=== PATIENT | female | born 1950 | race Two or more races ===

== ENCOUNTER 2017-03-04 06:31 | Inpatient (IN) | payer MEDICARE, OTHER ==
[~2017-03-04] VITALS: Ht 162.6 cm; Wt 40.8 kg
--- NOTE | 2017-03-04 06:35 | NUR ---
66 YO FEMALE BB AMBULANCE FOR J TUBE INSERTION. PT IS A MARIANO PATIENT, AND WANT PATIENT ADMITTED FOR RE INSERTION OF TUBE. PT DS TO ER BED, SKIN WARM AND DRY, RR EVEN AN DUNLABORED. AWAITING ORDERS FROM PROVIDER, WILL CONTINUE TO MONITOR
--- NOTE | 2017-03-04 06:47 | NUR ---
BLOOD SAMPLE OBTAINED AND SENT TO LAB
--- NOTE | 2017-03-04 06:53 | NUR ---
CALLED [facility] FOR AN H&P NO H&P WAS SENT WITH THE PT
[2017-03-04 07:03] LABS: EOSINOPHILS % (AUTO) 0.1 % (0.0-6.0); HEMATOCRIT 30 % (33-45); HEMOGLOBIN 10.2 g/dL (11.5-14.8); LYMPHOCYTES # (AUTO) 1.1 /CMM (0.8-4.8); LYMPHOCYTES % (AUTO) 5.8 % (20.0-44.0); MEAN CORPUSCULAR HEMOGLOBIN 34 PG (26.0-33.0); MEAN CORPUSCULAR HGB CONC 34 g/dl (31.0-36.0); MEAN CORPUSCULAR VOLUME 99 fL (82-100); MONOCYTES # (AUTO) 0.7 /CMM (0.1-1.30); MONOCYTES % (AUTO) 3.8 % (2.0-12.0); NEUTROPHILS # (AUTO) 17.6 /CMM (1.8-8.9); NEUTROPHILS % (AUTO) 90.3 % (43.0-81.0); PLATELET COUNT (AUTO) 104 /CMM (150-450); RDW COEFFICIENT OF VARIATION 18.6 (11.5-15.0); RED BLOOD CELL COUNT(AUTO) 3.05 MIL/uL (4.0-5.2); WHITE BLOOD COUNT (AUTO) 19.4 K/uL (4.3-11.0)
--- NOTE | 2017-03-04 07:14 | NUR ---
RECEIVED REPORT FROM PAT FOR ENRIQUE
[2017-03-04 07:21] LABS: CALCIUM, SERUM 7.9 mg/dL (8.5-10.1); CREATININE 1.4 mg/dL (0.6-1.3); POTASSIUM 5.2 mmol/L (3.5-5.1)
[2017-03-04 07:23] LABS: PROTHROMBIN TIME 10.7 SECS (9.5-12.7)
--- NOTE | 2017-03-04 07:42 | NUR ---
PAGED DR SANCHEZ, WAITING FOR RETURN CALL.
--- NOTE | 2017-03-04 08:05 | NUR ---
GAVE REPORT TO DIPTI CHOI MEDSURG DR QUINTANA ADMITTING DX J TUBE REPLACEMENT
[2017-03-04] MEDS ORDERED: LACT10SO JT (08:07)
[2017-03-04] MEDS ORDERED: DOCU-170 JT (08:07)
[2017-03-04] MEDS ORDERED: MAGN400O6 JT (08:07)
[2017-03-04] MEDS ORDERED: BISA10SU8 RC (08:07)
[2017-03-04] MEDS ORDERED: METO10TA3 JT (08:07)
[2017-03-04] MEDS ORDERED: DIPH1TAB JT (08:07)
[2017-03-04] MEDS ORDERED: HYDR2VIA3 IV (08:07)
[2017-03-04] MEDS ORDERED: RIFA550T JT (08:07)
[2017-03-04] MEDS ORDERED: ASCO-340 JT (08:07)
[2017-03-04] MEDS ORDERED: ENOX40DI SQ (08:07)
[2017-03-04] MEDS ORDERED: PANT40SU2 JT (08:07)
[2017-03-04] MEDS ORDERED: MULT-213 JT (08:07)
[2017-03-04] MEDS ORDERED: ONDA4TAB5 JT (08:07)
[2017-03-04] MEDS ORDERED: FERR300L JT (08:08)
--- NOTE | 2017-03-04 08:41 | NUR ---
RN MS NOTES RECEIVED PT FROM E.R. STAFF VIA MCKENNA, PT IS AWAKE, ALERT AND VERBALLY RESPOSONSIVE, NO COMPLAINT OF PAIN, NOT IN DISTRESS, ASSISTED TO BED, MADE COMFORTABLE, ROOM SET UP ORIENTATION PROVIDED, VERBALIZED UNDERSTANDING, CALL LIGHT PLACED WITHIN REACH, KEPT COMFORTABLE AND SUPERVISOR ALUMINUM FABRICATION BED, AWAITING ADMISSION ORDERS.
[2017-03-04 10:30] VITALS: BP 106/89
--- NOTE | 2017-03-04 11:16 | NUR ---
RN MS NOTES PT SEEN BY DR. SANCHEZ, PT'S ARAM AT BEDSIDE, PLAN OF CARE DISCUSSED WITH PT AND , VERBALIZED UNDERSTANDING.
[2017-03-04] MEDS ORDERED: ENOXAPARIN SODIUM 40 MG/0.4 ML DISP.SYRIN SQ SCH (11:30)
[2017-03-04] MEDS ORDERED: HYDROMORPHONE MDV 2 MG/ML VIAL IV PRN ×2 (11:30)
[2017-03-04] MEDS ORDERED: Potassium Chloride 10 MEQ in IV D5/0.45 NACL 1,000 ML IV PRN (11:30)
[2017-03-04] MEDS ORDERED: FEE PK DOSING 1 MIN EA MC ONE (11:45)
[2017-03-04] MEDS: IV D5/0.45 NACL 1,000 ML IV PRN (12:00)
[2017-03-04] MEDS: ENOXAPARIN SODIUM 30 MG/0.3 ML DISP.SYRIN SQ SCH (12:10)
[2017-03-04] MEDS: VANCOMYCIN 500 MG in IV D5W 100 ML IV SCH (13:55)
--- NOTE | 2017-03-04 14:53 | NUR ---
RN MS NOTES PT SEEN AND EXAMINED BY , PLAN OF CARE DISCUSSED WITH PT, PT CAME WITH THE DISLODGED PART OF THE GTUBE, SHOWED IT TO MD.
--- NOTE | 2017-03-04 15:37 | NUR ---
RN MS NOTES PT SEEN BY DR. GOMEZ, PLAN OF CARE DISCUSSED WITH PT, PER SHEEBA MCMAHON TO GIVE ZOFRAN IV PRN FOR N/V.
[2017-03-04 16:00] VITALS: BP 110/79
--- NOTE | 2017-03-04 18:16 | NUR ---
RN MS NOTES PT IN BED, AWAKE, ALERT AND ORIENTED, WATCHING TV, NO COMPLAINT OF PAIN OR ANY DISCOMFORT, RESRPIRATIONS NORMAL AND NOT LABORED, PM CARE RENDERED, IV FLUIDS INFUSING WELL, TURNED AND REPOSITIONED Q2 HRS, KEPT SKIN CLEAN AND DRY, ALL NEEDS ATTENDED.
[2017-03-04] MEDS: ONDANSETRON HCL/PF 4 MG/2 ML VIAL IV PRN (19:41)
--- NOTE | 2017-03-04 19:45 | NUR ---
MS RN NOTE RECEIVED PATIENT FROM DAY SHIFT, PATIENT IS ALERT AND ORIENTEDX3, DENIES RESPIRATORY DISTRESS OR PAIN AT THIS TIME, BUT COMPLAINS OF FEELING NAUSEOUS. PICC LINE ON LEFT ARM IS PATENT AND INTACT, FLUID IS RUNNING. SRX2, BED IN LOW POSITION, CALL LIGHT WITHIN REACH, WILL CONTINUE TO MONITOR PATIENT.
[2017-03-04 21:08] VITALS: BP 104/66
--- NOTE | 2017-03-04 22:10 | NUR ---
MS RN NOTE GOT AN ORDER OF REGLAN 5MG IVP Q8H PRN FOR N&V FROM DR. SANCHEZ.
[2017-03-04] MEDS ORDERED: METOCLOPRAMIDE HCL 10 MG/2 ML VIAL IV PRN (22:30)
[2017-03-04] MEDS ORDERED: HYDROMORPHONE 1 MG/1 ML DISP.SYRIN ONE (22:48)
[2017-03-04] MEDS: HYDROMORPHONE 1 MG/1 ML DISP.SYRIN IV PRN (22:50)
--- NOTE | 2017-03-04 22:52 | NUR ---
MS RN NOTE PATIENT COMPLAINS OF ABDOMINAL PAIN 8/, DILAUDID 1MG IVP GIVEN. WILL MONITOR FOR EFFECTIVENESS.
[2017-03-05] MEDS: IV D5/0.45 NACL 1,000 ML IV PRN ×2 (01:31→16:18)
[2017-03-05] MEDS ORDERED: HYDROMORPHONE 1 MG/1 ML DISP.SYRIN ONE (05:48)
[2017-03-05] MEDS: HYDROMORPHONE 1 MG/1 ML DISP.SYRIN IV PRN ×2 (05:51→21:31)
[2017-03-05] MEDS: VANCOMYCIN 500 MG in IV D5W 100 ML IV SCH (06:28)
--- NOTE | 2017-03-05 06:46 | NUR ---
MS RN NOTE PATIENT IS RESTING IN BED COMFORTABLY, NO S/S OF RESPIRATORY DISTRESS OR PAIN AT THIS TIME. PICC LINE ON LEFT UPPER ARM, RUNNING FLUID. MORNING CARE RENDERED, EMPTIED JTUBE BAG. WILL ENDORSE TO DAY SHIFT NURSE FOR ENRIQUE.
[2017-03-05 07:00] LABS: BASOPHILS % (AUTO) 0.2 % (0.0-2.0); EOSINOPHILS # (AUTO) 0.1 /CMM (0.0-0.7); EOSINOPHILS % (AUTO) 1.1 % (0.0-6.0); HEMATOCRIT 26 % (33-45); HEMOGLOBIN 8.6 g/dL (11.5-14.8); LYMPHOCYTES # (AUTO) 0.9 /CMM (0.8-4.8); LYMPHOCYTES % (AUTO) 7.4 % (20.0-44.0); MEAN CORPUSCULAR HEMOGLOBIN 33 PG (26.0-33.0); MEAN CORPUSCULAR HGB CONC 34 g/dl (31.0-36.0); MEAN CORPUSCULAR VOLUME 100 fL (82-100); MONOCYTES # (AUTO) 0.4 /CMM (0.1-1.30); MONOCYTES % (AUTO) 3.5 % (2.0-12.0); NEUTROPHILS # (AUTO) 10.4 /CMM (1.8-8.9); NEUTROPHILS % (AUTO) 87.8 % (43.0-81.0); PLATELET COUNT (AUTO) 90 /CMM (150-450); RDW COEFFICIENT OF VARIATION 19.1 (11.5-15.0); RED BLOOD CELL COUNT(AUTO) 2.59 MIL/uL (4.0-5.2); WHITE BLOOD COUNT (AUTO) 11.8 K/uL (4.3-11.0)
--- NOTE | 2017-03-05 07:15 | NUR ---
MS RN OPENING NOTE RECEIVED REPORT. PATIENT IS RESTING IN BED. OPEN EYES TO NAME. ALERT, ORIENTED TO SELF, DISORIENTED TO TIME, EVENT AND PLACE. PATIENT DENIED PAIN AT THIS TIME. BED IS LOCKED, IN LOWEST POSITION, SIDE RAILS UP X 2 , BED ALARM ON. ALLERGY FINANCIAL QUANTITATIVE ANALYST. PATIENT IS NPO. NPO SIGN POSTED ON THE DOOR. ALL NEEDS ARE MET. WILL COME BACK TO ASSESS THE PATIENT.
[2017-03-05 07:33] LABS: ALBUMIN 1.6 g/dL (3.4-5.0); BILIRUBIN,TOTAL 4.2 mg/dL (0.2-1.0); CALCIUM, SERUM 7.4 mg/dL (8.5-10.1); CREATININE 1.5 mg/dL (0.6-1.3); MAGNESIUM 2.6 mg/dL (1.8-2.4); POTASSIUM 4.4 mmol/L (3.5-5.1); TOTAL PROTEIN, SERUM 5.2 g/dL (6.4-8.2)
[2017-03-05 08:00] VITALS: BP 100/50
[2017-03-05 08:13] LABS: BAND % (MANUAL) 2 % (0.0-5.0); EOSINOPHILS % (MANUAL) 1 % (0-4); LYMPHOCYTES % (MANUAL) 7 % (16-48); MONOCYTES % (MANUAL) 4 % (0-11.0); NEUTROPHILS % (MANUAL) 86 (42-76)
[2017-03-05] MEDS: ENOXAPARIN SODIUM 30 MG/0.3 ML DISP.SYRIN SQ SCH (09:00)
--- NOTE | 2017-03-05 09:15 | NUR ---
MS RN NOTE LOVENOX WAS HELD S/T PLATELET COUNT OF 90. WILL CLARIFY WITH . NO NEW ORDER AT THIS TIME.
--- NOTE | 2017-03-05 11:15 | NUR ---
ASSISTANT BRANCH OPERATIONS MANAGER NOTES AT BEDSIDE WITH WOUND RN. NOTICED PATIENT RIGHT FOOT IT MEDICAL CHIEF TECHNICIAN IN COLOR, COLD COMPARED TO LEFT AND UNABLE TO PALPATE PEDAL PULSE. NOTIFIED NOTIFY MD SANCHEZ. NOTIFIED MD OF WOULD CULTURE RESULT. PER MD NO BLOOD CULTURE/INFECTIOUS DISEASES CONSULT IS NEEDED. NO NEW ORDERS RECEIVED AT THIS TIME. MD NOTIFIED LOVENOX WAS HELD D/T DECREASED PLATELET COUNT AND HGB 8.6 COMPARED TO 10.2 [address]. PER MD CONSULT DR. MYERS FOR J-TUBE SITE. DR. LIO GALARZA FOR SURGICAL CONSULT.
[2017-03-05] MEDS ORDERED: Z GUARD REMEDY 2 OZ OINT TP PRN (11:30)
--- NOTE | 2017-03-05 11:32 | NUR ---
WOUND CARE CONSULT: PT PRESENTS CACHECTIC WITH SCARRING/STAINING TO SACRAL AND BUTTOCK AREA. PT HAS ABDOMINAL WOUND WITH PURULENT DRAINAGE AND G TUBE WHICH HAS DRAINAGE BAG. RECOMMEND SURGICAL CONSULT (CALLED BY DR SANCHEZ TO DR LIO GALARZA AND DR LOUIS VALADEZ). RECOMMENDATIONS MADE FOR SKIN PROTECTION AND WOUND CARE. DISCUSSED WITH NURSING STAFF. WILL SEE PRN. PT ABLE TO ASSIST WITH TURING AND REPOSITIONING IN BED. MD IN AGREEMENT WITH PLAN OF CARE. Addendum: 03/05/17 at 1134 by JONATHAN CHICAS WNDNU Amended: Links added.
--- NOTE | 2017-03-05 11:32 | NUR ---
MS RN NOTE DR MYERS AT THE BEDSIDE.
[2017-03-05] MEDS: Z GUARD REMEDY 2 OZ OINT TP SCH (12:01)
--- NOTE | 2017-03-05 12:17 | NUR ---
MS RN NOTES CALLED DR SANCHEZ OFFICE TO NOTIFY PATIENT IS REFUSING SURGICAL CONSULT FOR PATIENT AND WANTS PATIENT TO BE TRANSFERRED TO [facility]. PER MD OK TO CONSULT CASE MANAGEMENT TO ASK ABOUT TRANSFER. SPOKE WITH NATALIE VICENTE AND SHE WILL F/U
--- NOTE | 2017-03-05 12:17 | NUR ---
MS RN NOTE PATIENT'S AT BEDSIDE. REQUESTED TO SPEAK TO THE DOCTOR ABOUT HAVING THE TRANSFERRED TO [facility] WHERE HER J-TUBE WAS ORIGINALLY PLACED. PER PATIENT'S THE FAMILY WANTS THE PATIENT TO BE TRANSFERRED SOON POSSIBLE. Deanne SANCHEZ NOTIFIED. PER MD ORDER WILL CONTACT CASE MANAGEMENT FOR TRANSFER.
--- NOTE | 2017-03-05 12:52 | NUR ---
MS RN NOTES CALLED [facility] [phone] TO SEE IF THEY CAN FAX OVER PATIENT POLST FOR DNR (PATIENT HAS DNR BRACELET) PATIENT IS UNABLE TO ANSWER THIS FOR US AT THIS TIME AND THEY WILL FAX OVER POLST.
[2017-03-05] MEDS: ONDANSETRON HCL/PF 4 MG/2 ML VIAL IV PRN (15:00)
[2017-03-05 16:00] VITALS: BP 103/52
--- NOTE | 2017-03-05 17:52 | NUR ---
MS RN NOTES DR LIO GALARZA AT BEDSIDE AND PLACED J TUBE SITE WITH CHAAVRRIA CATH. PER MD ORDER KUB STAT AND CALL HIM WITH RESULTS. AT THIS TIME [address] ON J TUBE SITE AND TAPED DOWN PER MD. G TUBE SIDE PLACEMENT CORRECTED BY DR LIO GALARZA AND IN PLACE DRAINING. CALLED X RAY TO NOTIFY OF STAT KUB
[2017-03-05] MEDS ORDERED: DIATR MEGLU/DIATRIZOATE SODIUM 30 ML BOTTLE (GASTROGRAPHIN) ONE ×2 (17:56→18:55)
[2017-03-05] MEDS ORDERED: TPN/PPN PER PHARMACY XX PRN (18:00)
[2017-03-05] MEDS ORDERED: IV NS 0.9% 500 ML IV ONE (18:00)
[2017-03-05 18:45] VITALS: BP 103/52
--- NOTE | 2017-03-05 19:00 | NUR ---
MS JIMBO CLOSING NOTES PATIENT KUB FOR G AND J TUBE COMPLETED PER MD GALARZA ORDER AND PENDING RESULTS. NOTIFIED JIMBO ESTRADA TO CALL MD ONCE RESULTS ARE UP PER MD ORDER. CONSENTS SIGNED BY PATIENT SON PER PATIENT REQUEST FOR J AND G TUBE PLACEMENT. PATIENT ASSISTED TO POSITION OF COMFORT AND TUBES TAPED PER MD. PATIENT SON AT BEDSIDE AND UPDATED. ALL NEEDS IN REACH, IVF RUNNING ORDERED. PRN ON HOLD AT THIS TIME PENDING CONVERSATION WITH DR GALARZA S/P KUB RESULTS. PATIENT RAILS UPX3 FOR SAFETY AND CARE ENDORSED TO RN FOR ENRIQUE
--- NOTE | 2017-03-05 20:00 | NUR ---
MS RN NOTE PATIENT ASLEEP IN BED. EASILY AROUSABLE. NO S/S OF PAIN OR DISCOMFORT. NO RESPIRATORY DISTRESS NOTED. CAREGIVER AT BEDSIDE. G TUBE TO RUQ IN PLACE. GREEN SECRETIONS DRAINING BY GRAVITY TO COLLECTION BAG. CHANGED DRESSING TO SITE, AND SECURED WITH TAPE. JTUBE IN PLACE. CLEANSED SITE AND SECURED WITH TAPE. KUB RESULTS PENDING. WILL INFORM DR.SAM GALARZA WHEN RESULTS ARE RECEIVED. IV SITE INTACT, WITH FLUIDS RUNNING ORDERED. BED LOCKED AND IN LOWEST POSITION. SIDE RAILS UP, CALL LIGHT WITHIN REACH. WILL CONTINUETO MONITOR.
[2017-03-05] MEDS: MEROPENEM 500 MG in IV NS 0.9% 50 ML IV SCH (20:01)
[2017-03-05 20:20] VITALS: BP 116/51
[2017-03-05 22:00] VITALS: BP 116/51
--- NOTE | 2017-03-05 22:13 | NUR ---
MS RN NOTE SPOKE TO DR.SAM GALARZA REGARDING KUB RESULTS. PER DR. GALARZA, OKAY TO RESUME PREVIOUS FEEDING THROUGH J-TUBE. CALLED [facility] AND SPOKE TO GENA. PATIENT'S PREVIOUS FEEDING WAS JEVITY 1.2@65ML/[id number]. WILL RESUME SOON POSSIBLE.
[2017-03-06] MEDS ORDERED: FIBERSOURCE HN 1,000 ML BOTTLE GT PRN ×2 (01:00→07:45)
[2017-03-06] MEDS: VANCOMYCIN 500 MG in IV D5W 100 ML IV SCH (01:00)
--- NOTE | 2017-03-06 01:00 | NUR ---
MS RN NOTE BEGAN PATIENT ON FIBERSOURCE HN. WILL CONTINUE TO MONITOR.
--- NOTE | 2017-03-06 06:18 | NUR ---
MS RN NOTE PATIENT STABLE. JTUBE FEEDING RUNNING ORDERED. DRESSING INTACT TO GTUBE, WITH GREEN DRAINAGE COLLECTING BY GRAVITY TO COLLECTION BAG. WILL CONTINUE TO MONITOR.
[2017-03-06] MEDS: IV D5/0.45 NACL 1,000 ML IV PRN (06:36)
[2017-03-06 06:39] LABS: BASOPHILS % (AUTO) 0.2 % (0.0-2.0); EOSINOPHILS # (AUTO) 0.1 /CMM (0.0-0.7); EOSINOPHILS % (AUTO) 1.4 % (0.0-6.0); HEMATOCRIT 23 % (33-45); HEMOGLOBIN 7.6 g/dL (11.5-14.8); LYMPHOCYTES % (AUTO) 10.1 % (20.0-44.0); MEAN CORPUSCULAR HEMOGLOBIN 34 PG (26.0-33.0); MEAN CORPUSCULAR HGB CONC 34 g/dl (31.0-36.0); MEAN CORPUSCULAR VOLUME 99 fL (82-100); MONOCYTES # (AUTO) 0.5 /CMM (0.1-1.30); MONOCYTES % (AUTO) 5.3 % (2.0-12.0); NEUTROPHILS # (AUTO) 8.1 /CMM (1.8-8.9); PLATELET COUNT (AUTO) 80 /CMM (150-450); RDW COEFFICIENT OF VARIATION 19.7 (11.5-15.0); RED BLOOD CELL COUNT(AUTO) 2.27 MIL/uL (4.0-5.2); WHITE BLOOD COUNT (AUTO) 9.8 K/uL (4.3-11.0)
[2017-03-06 07:03] LABS: ALBUMIN 1.5 g/dL (3.4-5.0); BILIRUBIN,TOTAL 3.2 mg/dL (0.2-1.0); CALCIUM, SERUM 7.2 mg/dL (8.5-10.1); CREATININE 1.5 mg/dL (0.6-1.3); MAGNESIUM 2.5 mg/dL (1.8-2.4); PHOSPHORUS 4.4 mg/dL (2.5-4.9); POTASSIUM 3.7 mmol/L (3.5-5.1); TOTAL PROTEIN, SERUM 4.9 g/dL (6.4-8.2)
--- NOTE | 2017-03-06 07:40 | NUR ---
MS RN NOTES PATIENT RED CHAVARRIA IN PLACE AND TAPED FOR J TUBE AND FEEDING RESUMED PER MD ORDER. G TUBE SITE COVERED WITH SPLIT GAUZE DUE TO DRAINAGE FROM G TUBE SITE; HOWEVER DRAINING WELL TO DRAINAGE BAG. WILL MONITOR PATIENT SKIN/DRAINAGE AND WOUND CARE ORDERED AND PRN FOR SKIN CARE.
--- NOTE | 2017-03-06 07:40 | NUR ---
MS RN OPENING NOTE PATIENT IS RESTING IN BED COMFORTABLY. DENIES PAIN AT THIS TIME. THE BED IS IN LOWEST POSITION. SIDE RAILS UP X 2. ALL NEEDS WITHIN REACH. WILL RETURN TO CHECK ON PATIENT IN 15 MINUTES
[2017-03-06 08:00] VITALS: BP 96/39
[2017-03-06 08:03] LABS: EOSINOPHILS % (MANUAL) 1 % (0-4); LYMPHOCYTES % (MANUAL) 6 % (16-48); MONOCYTES % (MANUAL) 3 % (0-11.0); NEUTROPHILS % (MANUAL) 89 (42-76); REACTIVE LYMPHOCYTES 1 % (0-0)
[2017-03-06] MEDS: ENOXAPARIN SODIUM 30 MG/0.3 ML DISP.SYRIN SQ SCH ×2 (09:00→21:01)
[2017-03-06] MEDS: MEROPENEM 500 MG in IV NS 0.9% 50 ML IV SCH ×2 (09:24→21:12)
[2017-03-06] MEDS: Z GUARD REMEDY 2 OZ OINT TP SCH (09:25)
[2017-03-06] MEDS: NEOMY SULF/BACITRAC ZN/POLY 15 GM TUBE TP SCH ×2 (09:33→21:03)
--- NOTE | 2017-03-06 09:34 | NUR ---
CAREER CENTER ADVISORQUALITY ASSURANCE TESTER NOTE ANTIBIOTIC WAS PLACED IN A WRONG CASSETTE.ADMINISTERED AGAINST PAST MEDICAL SCHEDULE ONCE THE MEDICATION BECAME AVAILABLE. LOVENOX WAS HELD S/T PLATELET COUNT OF 80 TRENDING DOWN (90 ON _ Addendum: 03/06/17 at 0935 by MARITA SHANE RN 90 ON 03/05/17
[2017-03-06 10:00] VITALS: BP 96/49
--- NOTE | 2017-03-06 10:28 | NUR ---
MS RN NOTE DR. GIFFORD AT THE BEDSIDE. MD INFORMED OF PATIENT'S H&h TRENDING DOWN, DECREASED PLATELETS, LABILE BP, BUN/CREATININE LEVELS, ALL LAB RESULTS DEVIATING FROM THE NORM. NO NEW ORDERS RECEIVED. NO ACCUCHECK PER MD. NO CHANGE IN MEDICATIONS. PER MD LOVENOX CAN MAY ADMINISTERED DESPITE THE PLATELET COUNT, B/C PATIENT IS AT INCREASED RISK FOR VTE. WILL ENDORCE TO HOUSECLEANER FLOOR. M.D PRESCRIBED ATRIFICIAL SALIVA FOR ORAL HYDRATION/COMFORT. PHARMACY WILL ORDER THE MEDICATION. PER PHARMACY MEDICATION WILL NOT BE AVALIBLE UNTIL TOMORROW. MEANTIME WILL PROVIDE ORAL CARE FOR COMFORT.
--- NOTE | 2017-03-06 10:30 | NUR ---
MS RN NOTE PER DR GIFFORD PATIENT IS AT INCREASED RISK FOR VTE. LOVENOX TO BE CONTINUED DESPITE THE H&H TRENDING DOWN AND PLATELET COUNT OF 80.
--- NOTE | 2017-03-06 12:50 | NUR ---
MS TELE NOTE 1/3 ORDERED STOOL SAMPLES COLLECTED. LAB INFORMED TO CONTENT MANAGEMENT SPECIALIST THE SPECIMEN.
[2017-03-06] MEDS ORDERED: BISACODYL SUPP (10 MG) 10 MG/SUPP.RECT SUPP.RECT RC PRN (13:30)
[2017-03-06] MEDS ORDERED: MAGNESIUM HYDROXIDE 30 ML UDC JT PRN (13:30)
[2017-03-06] MEDS ORDERED: Medication Not On Formulary EA (Ondansetron Hcl (Zofran) 4 MG) JT SCH (13:30)
[2017-03-06] MEDS ORDERED: METOCLOPRAMIDE HCL 10 MG TABLET GT PRN (13:30)
[2017-03-06] MEDS ORDERED: DIPHENOXYLATE HCL/ATROP SULF 1 UDTAB TABLET GT PRN (13:30)
[2017-03-06] MEDS ORDERED: LACTULOSE 10 G/15 ML UDC (PYXIS) GT PRN (14:00)
[2017-03-06 16:00] VITALS: BP 90/49
[2017-03-06] MEDS: RIFAXIMIN 550 MG TABLET PO SCH (17:54)
[2017-03-06] MEDS: PANTOPRAZOLE 40 MG/PACK PACK JT SCH (17:54)
[2017-03-06] MEDS: FERROUS SULFATE UDC 300 MG/5 ML UDC JT SCH (17:54)
--- NOTE | 2017-03-06 18:50 | NUR ---
MS RN CLOSING NOTE PATIENT IS RESTING IN BED EYES OPEN. PATIENT STATED SHE IS HAVING PAIN DISCOMFORT IN ABDOMINAL REGION S/T IRRITATION CAUSED BY THE LINKAGE FROM THE G-TUBE CITE. PAIN MEDICATION HYDROMORPHONE WAS NOT ADMINISTERED TO THE PATIENT D/T DECREASED BLOOD PRESSURE 90/50. MD. NOTIFIED OF ALL THE FINDINGS, NO NEW ORDERS RECEIVED AT THIS TIME. REASON FOR NOT ADMINISTERING PAIN MEDICATION WAS EXPLAINED TO THE PATIENT. PATIENT VERBALIZED UNDERSTANDING. BED IS IN LOWEST, LOCKED POSITION, SEMI-ROJAS'S, SIDE RAILS UP X 2, BED ALARM ON. ALL NEEDS WITHIN REACH. WILL ENDORCE TO RETAIL SALES DIRECTOR FOR ENRIQUE.
--- NOTE | 2017-03-06 19:30 | NUR ---
MS RN NOTE PATIENT ASLEEP IN BED. EASILY AROUSABLE. PATIENT STATES THAT SHE IS HAVING GENERALIZED PAIN 01/22. RELAXATION TECHNIQUES PROVIDED. CANNOT GIVE PAIN MEDS AT THIS TIME DUE TO LOW BLOOD PRESSURE. G TUBE INTACT. PERFORMED DRESSING CHANGE. JTUBE FEEDING RUNNING @30ML/HR. TITRATING UP TO 65ML/HR. NO RESIDUAL. BED LOCKED AND IN LOWEST POSITION. SIDE RAILS UP, CALL LIGHT WITHIN REACH. WILL CONTINUE TO MONITOR.
[2017-03-06 20:00] VITALS: BP 101/66
[2017-03-06] MEDS: HYDROMORPHONE 1 MG/1 ML DISP.SYRIN IV PRN (21:01)
[2017-03-06] MEDS: DOCUSATE SODIUM LIQ 100 MG/10 ML UDC GT SCH (21:02)
[2017-03-07] MEDS: IV D5/0.45 NACL 1,000 ML IV PRN ×2 (06:32→21:48)
--- NOTE | 2017-03-07 06:37 | NUR ---
MS RN NOTE PATIENT STABLE. ALL NEEDS MET AND ATTENDED TO. GTUBE IN PLACE. DRESSING CHANGED. APPROX. 200ML OF GREEN DRAINAGE NOTED IN COLLECTION BAG. JTUBE IN PLACE WITH TWO SUTURES. FEEDING RUNNING @45ML/HR, TITRATING TO 65ML/HR. KEPT CLEAN DRY AND COMFORTABLE. WILL ENDORSE TO DAY SHIFT FOR ENRIQUE.
[2017-03-07 07:37] LABS: BASOPHILS % (AUTO) 0.5 % (0.0-2.0); EOSINOPHILS # (AUTO) 0.1 /CMM (0.0-0.7); EOSINOPHILS % (AUTO) 1.9 % (0.0-6.0); HEMATOCRIT 23 % (33-45); HEMOGLOBIN 7.6 g/dL (11.5-14.8); LYMPHOCYTES # (AUTO) 0.7 /CMM (0.8-4.8); LYMPHOCYTES % (AUTO) 16.5 % (20.0-44.0); MEAN CORPUSCULAR HEMOGLOBIN 34 PG (26.0-33.0); MEAN CORPUSCULAR HGB CONC 34 g/dl (31.0-36.0); MEAN CORPUSCULAR VOLUME 99 fL (82-100); MONOCYTES # (AUTO) 0.3 /CMM (0.1-1.30); NEUTROPHILS # (AUTO) 3.4 /CMM (1.8-8.9); NEUTROPHILS % (AUTO) 74.1 % (43.0-81.0); PLATELET COUNT (AUTO) 84 /CMM (150-450); RDW COEFFICIENT OF VARIATION 19.4 (11.5-15.0); RED BLOOD CELL COUNT(AUTO) 2.26 MIL/uL (4.0-5.2); WHITE BLOOD COUNT (AUTO) 4.5 K/uL (4.3-11.0)
[2017-03-07 07:52] LABS: ALBUMIN 1.5 g/dL (3.4-5.0); BILIRUBIN,TOTAL 2.7 mg/dL (0.2-1.0); CALCIUM, SERUM 7.1 mg/dL (8.5-10.1); CREATININE 1.2 mg/dL (0.6-1.3); MAGNESIUM 2.4 mg/dL (1.8-2.4); PHOSPHORUS 3.4 mg/dL (2.5-4.9); POTASSIUM 3.2 mmol/L (3.5-5.1)
[2017-03-07 08:00] VITALS: BP 95/56
--- NOTE | 2017-03-07 08:00 | NUR ---
MED SURGE RN: INITIAL NOTES RECEIVED PT ALERT AND ORIENTED X2. ROOM AIR SATING AT 100%. J-TUBE ATTACHED TO FIBERSOURCE FEEDING RUNNING AT 40ML/HR. SITE PATENT. NO REDNESS NOTED. NO BLEEDING NOTED. DRESSING INTACT. G-TUBE DRAINING GREEN FLUIDS. NO REDNESS AT SITE. RESTING COMFORTABLY IN BED. PAIN MANAGED WITH PAIN MEDICATIONS ORDERED. NO DISTRESS. NO SOB. RESTING COMFORTABLY IN BED. INSTRUCTED TO CALL FOR ASSISTANCE. CALL LIGHT WITHIN REACH.
[2017-03-07] MEDS: MEROPENEM 500 MG in IV NS 0.9% 50 ML IV SCH ×2 (08:12→20:24)
[2017-03-07 08:26] LABS: BAND % (MANUAL) 1 % (0.0-5.0); EOSINOPHILS % (MANUAL) 2 % (0-4); LYMPHOCYTES % (MANUAL) 15 % (16-48); MONOCYTES % (MANUAL) 4 % (0-11.0); NEUTROPHILS % (MANUAL) 78 (42-76)
[2017-03-07] MEDS ORDERED: MULTIVIT, IRON, MIN NO. 8, FA 1 TAB GT SCH (09:00)
[2017-03-07] MEDS: RIFAXIMIN 550 MG TABLET PO SCH ×3 (09:03→17:31)
[2017-03-07] MEDS: PANTOPRAZOLE 40 MG/PACK PACK JT SCH ×3 (09:03→17:30)
[2017-03-07] MEDS: FERROUS SULFATE UDC 300 MG/5 ML UDC JT SCH ×4 (09:03→17:31)
[2017-03-07] MEDS: ASCORBIC ACID 500 MG TABLET GT SCH (09:03)
[2017-03-07] MEDS: ENOXAPARIN SODIUM 30 MG/0.3 ML DISP.SYRIN SQ SCH (09:03)
[2017-03-07] MEDS: HYDROMORPHONE 1 MG/1 ML DISP.SYRIN IV PRN ×2 (09:05→20:28)
[2017-03-07] MEDS ORDERED: BIOTENE DRY MOUTH RINSE MM PRN (10:30)
[2017-03-07] MEDS: POTASSIUM CHLORIDE 20 MEQ POWDER PACKET PO SCH ×2 (11:26→12:28)
[2017-03-07] MEDS: NEOMY SULF/BACITRAC ZN/POLY 15 GM TUBE TP SCH ×2 (11:27→21:47)
[2017-03-07] MEDS: Z GUARD REMEDY 2 OZ OINT TP SCH (11:27)
[2017-03-07] MEDS: VANCOMYCIN 500 MG in IV D5W 100 ML IV SCH (12:28)
[2017-03-07 16:00] VITALS: BP_SYST 111; BP_SYST 95; BP_DIAS 56; BP_DIAS 66
--- NOTE | 2017-03-07 18:30 | NUR ---
MED SURGE RN: CLOSING NOTE PT ALERT AND ORIENTED X2. ON J-TUBE FEEDING WITH FIBERSOURCE RUNNING AT 40ML/HR. SITE CLEAR. PATENT. NO REDNESS. NO IRRITATION NOTED. NEW RECOMMENDATION PER RD FOR CHANGE IN FEEDING TO NOVASOURCE RUNNING AT 25ML/HR, AND MULTI VITAMIN TO NEPHRO-SANDY. CALLED MD GONZALEZ AT [phone], AWAITING CALL BACK. PT REFUSED EVENING MEDICATIONS DESPITE EXPLAINING ALL RISKS AND BENEFITS. PAIN MANAGEMENT CONTROLLED WITH PAIN MEDICATIONS. G-TUBE STILL DRAINING GREEN SUBSTANCES. CHANGED DRESSING. DRESSING INTACT. RESTING COMFORTABLY IN BED. CALL LIGHT WITHIN REACH.
--- NOTE | 2017-03-07 18:52 | NUR ---
MED SURGE RN: NOTE DAUGHTER IN LAW (TEETEE [phone]) STATED THAT INSULIN SHOULD BE HELD GIVEN IF BG IS 140 OR LESS. ALL RISKS AND BENEFITS EXPLAINED.
--- NOTE | 2017-03-07 19:30 | NUR ---
MS RN OPENING NOTES: PATIENT IN BED, AOX2, ON ROOM AIR, BREATHING EVEN AND UNLABORED. PATIENT HAS A PICC LINE AT [facility] INFUSING WELL WITH D5 1/2 NS RUNNING AT 80 ML/HR. PATIENT NOTED TO HAVE OLD GTUBE WHICH IS NON FUNCTIONING, DRAINING BY GRAVITY WITH DARK GREEN FLUID TO COLLECTION BAG. NOTED MODERATE AMOUNT OF DARK GREEN FLUID SEEPING FROM GT SITE WELL. DRESSING OVER ABDOMEN CHANGED. ALSO NOTED J TUBE WITH FEEDING OF FIBERSOURCE AT 65 ML/HR. PATIENT APPEARS TO BE IN PAIN AND IS NOT WILLING TO HAVE HER ABDOMINAL AREA TOUCHED. PROVIDED FOR COMFORT AND SAFETY. WILL CONT TO MONITOR.
[2017-03-07 20:00] VITALS: BP 97/58
--- NOTE | 2017-03-07 20:28 | NUR ---
RN NOTES: PATIENT COMPLAINED OF 7/10 PAIN OVER ANTERIOR ABDOMEN. ADMINISTERED DILAUDID 0.5 MG IV. PROVIDED FOR COMFORT. WILL CONT TO MONITOR.
[2017-03-07] MEDS ORDERED: RENAL NOVASOURCE 1,000 ML BOTTLE GT PRN (20:30)
[2017-03-07] MEDS: DOCUSATE SODIUM LIQ 100 MG/10 ML UDC GT SCH (21:48)
[2017-03-07] MEDS: RENAL NOVASOURCE 1,000 ML BOTTLE GT SCH (21:49)
--- NOTE | 2017-03-07 21:50 | NUR ---
RN NOTES: PATIENT REFUSED HER COLACE SCHEDULED FOR HS, IT IS GIVING HER DIARRHEA. RISKS AND BENEFITS EXPLAINED, PATIENT STILL REFUSING. PATIENT STILL APPEARS TO BE IN PAIN. CHECKED J TUBE FOR RESIDUAL, NO RESIDUAL NOTED BUT THERE IS SOME RESISTANCE TO FLUSHING. ATTEMPTED TO FLUSH JTUBE, HOWEVER, PATIENT SAYS THAT SHE IS IN PAIN AND REFUSES TO HAVE NEW FEEDING OF NOVASOURCE STARTED ON HER AT THIS TIME. PROVIDED FOR COMFORT. PRIVATE CG AT BEDSIDE. WILL CONT TO MONITOR.
--- NOTE | 2017-03-08 07:30 | NUR ---
RN OPENING NOTES RECEIVED PT. IN BED A&OX2. NO SOB, BREATHING ON ROOM AIR UNLABORED. PT. HAS NO S/S OF ACUTE DISTRESS. PT. HAS IV FLUIDS RUNNING AT 80 ML/HR VIA PICC LINE. PEG TUNE RUNNING AT 25 ML/HR. BED IS IN LOW POSITION, 2 SIDE RAILS UP, AND INSTRUCTED PT. TO USE CALL LIGHT WITHIN REACH. ALL NEEDS MET AT THIS TIME.
--- NOTE | 2017-03-08 07:32 | NUR ---
MS RN CLOSING NOTES: PATIENT IN BED, AOX2, ON ROOM AIR, BREATHING EVEN AND UNLABORED. BREATH SOUNDS CLEAR TO AUSCULTATION. STIMM COMPLAINING OF INTERMITTENT PAIN OVER ABDOMEN, AT THE SITES OF THE GTUBE AND J TUBE INSERTION. ERLINDA PICC LINE INTACT AND PATENT, INFUSING WELL WITH D5 1/2 NS RUNNING AT 80 ML/HR. J TUBE (CHAVARRIA CATH TUBE ) AT LEFT SIDE OF ABDOMEN, INTACT AND RUNNING WITH FEEDING OF NOVASOURCE AT 25 ML/HR. GTUBE AT RIGHT SIDE OF ABDOMEN WITH DARK GREENISH FLUID DRAINING BY GRAVITY TO COLLECTION BAG. DUE MEDS GIVEN. WOUND TREATMENT DONE. PROVIDED FOR COMFORT AND SAFETY. NO ACUTE CHANGE IN CONDITION NOTED THROUGH SHIFT. WILL ENDORSE TO AM RN FOR ENRIQUE.
[2017-03-08 08:00] VITALS: BP 103/57
[2017-03-08 08:01] LABS: CREATININE 0.9 mg/dL (0.6-1.3); POTASSIUM 3.6 mmol/L (3.5-5.1)
[2017-03-08] MEDS: ASCORBIC ACID 500 MG TABLET GT SCH (09:00)
[2017-03-08] MEDS: VIT B CMPLX 3/FA/VIT C/BIOTIN 1 TAB TABLET PO SCH (09:00)
[2017-03-08] MEDS: MEROPENEM 500 MG in IV NS 0.9% 50 ML IV SCH ×2 (10:05→20:13)
[2017-03-08] MEDS: NEOMY SULF/BACITRAC ZN/POLY 15 GM TUBE TP SCH ×2 (10:06→21:45)
[2017-03-08] MEDS: Z GUARD REMEDY 2 OZ OINT TP SCH (10:07)
[2017-03-08] MEDS: ENOXAPARIN SODIUM 30 MG/0.3 ML DISP.SYRIN SQ SCH (10:09)
--- NOTE | 2017-03-08 10:15 | NUR ---
RN NOTES NOVASOUCE 25ML/HR WAS HELD DUE TO J TUBE OBSTRUCTION. MD WILL BE NOTIFIED.
[2017-03-08] MEDS: HYDROMORPHONE 1 MG/1 ML DISP.SYRIN IV PRN (11:52)
[2017-03-08] MEDS: IV D5/0.45 NACL 1,000 ML IV PRN (11:56)
[2017-03-08] MEDS: FERROUS SULFATE UDC 300 MG/5 ML UDC JT SCH ×2 (13:00→17:00)
--- NOTE | 2017-03-08 13:43 | NUR ---
RN NOTES UNABLE TO ADMINISTER FERROUS SULFATE VIA J-TUBE DUE TO NON-PATENT J-TUBE.
[2017-03-08] MEDS: VANCOMYCIN 500 MG in IV D5W 100 ML IV SCH (13:46)
--- NOTE | 2017-03-08 15:05 | NUR ---
RN NOTES G-TUBE CALLED [employer] FOR A SUTURE KIT, [address] THREAD, AND A RED KOREY LUMEN CATHETER PER MD ORDER TO REPLACE PT.'S G TUBE.
[2017-03-08 16:00] VITALS: BP 106/60
[2017-03-08 16:04] VITALS: BP 106/60
[2017-03-08] MEDS ORDERED: DIATR MEGLU/DIATRIZOATE SODIUM 30 ML BOTTLE (GASTROGRAPHIN) ONE (16:11)
[2017-03-08] MEDS: ONDANSETRON HCL/PF 4 MG/2 ML VIAL IV PRN (16:34)
[2017-03-08 16:50] VITALS: BP 103/57
[2017-03-08] MEDS: PANTOPRAZOLE 40 MG/PACK PACK JT SCH (17:00)
[2017-03-08] MEDS: RIFAXIMIN 550 MG TABLET PO SCH (17:00)
--- NOTE | 2017-03-08 17:00 | NUR ---
PT. HAS NEW J TUBE PLACEMENT AWAITING FOR POSITION FROM ABDOMINAL X-RAY.
[2017-03-08] MEDS: RENAL NOVASOURCE 1,000 ML BOTTLE GT SCH (18:37)
--- NOTE | 2017-03-08 19:30 | NUR ---
RN CLOSING NOTES PT. IN BED A&OX2. NO SOB, BREATHING ON ROOM AIR UNLABORED. PT. HAS NO S/S OF ACUTE DISTRESS. PT. HAS IV FLUIDS RUNNING AT 80 ML/HR VIA PICC LINE. J - PEG TUBE RUNNING AT 25 ML/HR. BED IS IN LOW POSITION, 2 SIDE RAILS UP, AND INSTRUCTED PT. TO USE CALL LIGHT WITHIN REACH. WILL ENDORSE REPORT TO PORTER MARINA NURSE.
--- NOTE | 2017-03-08 19:30 | NUR ---
MS RN OPENING NOTES: PATIENT IN BED, AOX2, ON ROOM AIR, BREATHING EVEN AND UNLABORED. ERLINDA PICC LINE INTACT AND PATENT, INFUSING WELL WITH D5 1/2 NS RUNNING AT 80 ML/HR. PATIENT HAS A JTUBE AT RIGHT SIDE OF ABDOMEN, NEWLY PLACED TODAY, RUNNING WITH FEEDING OF NOVASOURCE AT 25 ML/HR. PATIENT HAS GT AT MID UPPER ABDOMEN, WITH CLEAN AND INTACT DRESSING ALONG THE SIDES, SECURED WITH PAPER TAPE. GT IS DRAINING DARK GREEN FLUID TO COLLECTION BAG. PATIENT APPEARS CALM AND IN NO DISTRESS, DENIES ANY PAIN AT THIS TIME. PROVIDED FOR COMFORT AND SAFETY. BED IN LOWEST AND LOCKED POSITION, SIDERAILS UP X3. WILL CONT TO MONITOR.
[2017-03-08 20:00] VITALS: BP 100/59
[2017-03-08] MEDS: DOCUSATE SODIUM LIQ 100 MG/10 ML UDC GT SCH (21:47)
[2017-03-09] MEDS: IV D5/0.45 NACL 1,000 ML IV PRN (01:13)
[2017-03-09] MEDS: ONDANSETRON HCL/PF 4 MG/2 ML VIAL IV PRN ×3 (01:27→15:46)
--- NOTE | 2017-03-09 01:31 | NUR ---
RN NOTES: PATIENT COMPLAINED OF NAUSEA, NO VOMITING. ADMINISTERED ZOFRAN 4 MG IV. HOB ELEVATED.
--- NOTE | 2017-03-09 05:25 | NUR ---
RN NOTES: PATIENT HAD ONE EPISODE OF VOMITING GREEN BILIOUS EMESIS. ZOFRAN IS NOT YET DUE TO BE GIVEN AT THIS TIME. PATIENT INITIALLY AGREED TO HAVE REGLAN, HOWEVER, WHEN REGLAN WAS ABOUT TO BE ADMINISTERED, PATIENT REFUSED, SAYING SHE WOULD RATHER WAIT FOR NEXT ZOFRAN DOSE. REGLAN WASTED. MAINTAINED HOB ELEVATED.
[2017-03-09 06:45] LABS: CALCIUM, SERUM 7.3 mg/dL (8.5-10.1)
--- NOTE | 2017-03-09 06:55 | NUR ---
MS RN CLOSING NOTES: PATIENT IN BED, AOX3, ON ROOM AIR, BREATHING EVEN AND UNLABORED. J TUBE FEEDING OF NOVASOURCE RESTARTED AT 25 ML/HR. G TUBE DRAINING DARK GREEN FLUIDS TO GRAVITY, DRESSING AROUND GT SITE CLEAN AND INTACT, PATIENT REFUSED TO HAVE IT CHANGED NOT UNLESS IT IS SOILED/SATURATED. ERLINDA PICC LINE INTACT AND RUNNING WELL WITH D5 1/2 NS RUNNING AT 80 ML/HR. DUE MEDS GIVEN. PROVIDED FOR COMFORT AND SAFETY. WILL ENDORSE TO AM RN FOR ENRIQUE.
--- NOTE | 2017-03-09 07:30 | NUR ---
RN OPENING NOTES RECEIVED PT. IN BED SLEEPING EASY TO AROSE, A&OX3. BREATHING ON ROOM AIR, AND NO SOB. NO S/S OF ACUTE DISTRESS. PT.'S CAREGIVER NEAR BEDSIDE. IV FLUIDS RUNNING VIA PICC LINE 80 ML/HR. NOVASOURCE FEEDING RUNNING AT 25 ML/HR. BED IS IN LOW POSITION, 2 SIDE RAILS UP, AND INSTRUCTED PT. TO USE CALL LIGHT WITHIN REACH.
[2017-03-09 07:31] LABS: POTASSIUM 2.6 mmol/L (3.5-5.1)
[2017-03-09] MEDS: MEROPENEM 500 MG in IV NS 0.9% 50 ML IV SCH ×2 (07:54→21:13)
[2017-03-09 08:00] VITALS: BP 151/76
[2017-03-09] MEDS: NEOMY SULF/BACITRAC ZN/POLY 15 GM TUBE TP SCH ×2 (08:00→21:50)
[2017-03-09] MEDS: Z GUARD REMEDY 2 OZ OINT TP SCH (08:00)
[2017-03-09] MEDS: PANTOPRAZOLE 40 MG/PACK PACK JT SCH ×2 (09:43→18:46)
[2017-03-09] MEDS: VIT B CMPLX 3/FA/VIT C/BIOTIN 1 TAB TABLET PO SCH (09:43)
[2017-03-09] MEDS: ASCORBIC ACID 500 MG TABLET GT SCH (09:43)
[2017-03-09] MEDS: RIFAXIMIN 550 MG TABLET PO SCH ×2 (09:43→18:46)
[2017-03-09] MEDS: FERROUS SULFATE UDC 300 MG/5 ML UDC JT SCH ×3 (09:43→18:46)
[2017-03-09] MEDS: ENOXAPARIN SODIUM 30 MG/0.3 ML DISP.SYRIN SQ SCH (09:46)
[2017-03-09 11:00] VITALS: BP 113/60
[2017-03-09] MEDS ORDERED: Potassium Chloride 40 MEQ in IV D5/0.45 NACL 1,000 ML IV PRN (11:38)
[2017-03-09] MEDS ORDERED: POTASSIUM CHLORIDE 20 MEQ POWDER PACKET GT ONE (12:00)
[2017-03-09] MEDS: VANCOMYCIN 500 MG in IV D5W 100 ML IV SCH (13:14)
--- NOTE | 2017-03-09 15:12 | NUR ---
RN NOTES PER DIETITIAN RECOMMENDATION PT. NEEDS TO CONTINUE ON NOVASOURCE AT 25 ML/HR DUE TO PT.'S KIDNEY DISEASE.
[2017-03-09] MEDS: HYDROMORPHONE 1 MG/1 ML DISP.SYRIN IV PRN ×2 (15:48→21:44)
--- NOTE | 2017-03-09 16:28 | NUR ---
RN NOTES ABDOMINAL WOUND WAS CLEANED WITH NORMAL SALINE, TRIPLE ANTIBIOTIC OINTMENT APPLIED, AND CLEAN DRESSING CHANGED. J-PEG SITE CLEANSED WITH NORMAL SALINE, AND CLEAN DRESSING APPLIED, NO S/S OF INFECTION NOTED.
[2017-03-09] MEDS: RENAL NOVASOURCE 1,000 ML BOTTLE GT SCH (19:05)
--- NOTE | 2017-03-09 19:30 | NUR ---
RN OPENING NOTES RECEIVED REPORT FROM OLIMPIA GONZALEZ. FOUND Pt AWAKE RESTING IN BED. NO S/S OF ACUTE DISTRESS OR SOB NOTED. Pt IS A/OX3, VERBAL, ABLE TO MAKE NEEDS KNOWN. SON VISITING AT BEDSIDE. IV ACCESS ON ERLINDA PICC. IVF KCL @80ML/HR, INFUSING WELL. JTUBE FEEDING NOVASOURCE @25ML/HR. SAFETY MEASURES IN PLACE. BED LOW, LOCKED, HOB ELEVATED, SIDE RAILS UP CALL LIGHT AND BEDSIDE TABLE WITHIN REACH. WILL CONTINUE TO MONITOR Pt THROUGHOUT THE NIGHT.
--- NOTE | 2017-03-09 20:05 | NUR ---
RN CLOSING NOTES PT. IN BED AWAKE, A&OX3. BREATHING ON ROOM AIR WITH NO SOB. NO S/S OF ACUTE DISTRESS. IV FLUIDS RUNNING VIA PICC LINE 80 ML/HR. NOVASOURCE FEEDING RUNNING AT 25 ML/HR. BILE DRAINED FROM BILIARY CHAVARRIA 200 CC OUTPUT. BED IS IN LOW POSITION, 2 SIDE RAILS UP, AND INSTRUCTED PT. TO USE CALL LIGHT WITHIN REACH. WILL ENDORSE REPORT TO BANK ANALYST NURSE.
[2017-03-09 21:14] VITALS: BP 95/70
[2017-03-09] MEDS: DOCUSATE SODIUM LIQ 100 MG/10 ML UDC GT SCH (21:46)
--- NOTE | 2017-03-10 06:35 | NUR ---
RN CLOSING NOTES NO SIGNIFICANT CHANGES DURING THE SHIFT. Pt's CONDITION REMAINS STABLE. NO S/S OF ACUTE DISTRESS OR SOB NOTED DURING THE NIGHT. ALL NEEDS MET AND ATTENDED TO. SAFETY MEASURES IN PLACE. WILL ENDORSE TO DAYSHIFT RN FOR Pt's ENRIQUE.
--- NOTE | 2017-03-10 07:54 | NUR ---
RN MS NOTES RECEIVED PATIENT IN BED, A/OX3 AND VERBALLY RESPONSIVE, NO APPARENT DISTRESS. G TUBE DRAINING THROUGH GRAVITY, J TUBE PATENT, TUBE FEEDING INFUSING WELL. ERLINDA PICC LINE PATENT. ALL NEEDS MET, CALL LIGHT WITHIN REACH.
[2017-03-10 08:00] VITALS: BP 96/55
[2017-03-10 08:14] LABS: CALCIUM, SERUM 6.9 mg/dL (8.5-10.1); POTASSIUM 3.2 mmol/L (3.5-5.1)
[2017-03-10] MEDS: MEROPENEM 500 MG in IV NS 0.9% 50 ML IV SCH (08:59)
[2017-03-10] MEDS: FERROUS SULFATE UDC 300 MG/5 ML UDC JT SCH ×2 (08:59→13:05)
[2017-03-10] MEDS: PANTOPRAZOLE 40 MG/PACK PACK JT SCH (09:00)
[2017-03-10] MEDS: ASCORBIC ACID 500 MG TABLET GT SCH (09:00)
[2017-03-10] MEDS: RIFAXIMIN 550 MG TABLET PO SCH (09:00)
[2017-03-10] MEDS: ENOXAPARIN SODIUM 30 MG/0.3 ML DISP.SYRIN SQ SCH (09:02)
[2017-03-10] MEDS: Z GUARD REMEDY 2 OZ OINT TP SCH (09:05)
[2017-03-10] MEDS: NEOMY SULF/BACITRAC ZN/POLY 15 GM TUBE TP SCH (09:05)
[2017-03-10] MEDS: VIT B CMPLX 3/FA/VIT C/BIOTIN 1 TAB TABLET PO SCH (09:07)
[2017-03-10] MEDS ORDERED: VIT1TABL44 PO (10:22)
--- NOTE | 2017-03-10 14:40 | NUR ---
RN MS CLOSING NOTES PATIENT LEFT IN STABLE CONDITION, ON A GURNEY, VIA AMBULANCE ACCOMPANIED BY 2 DECKHAND SHRIMP BOAT. PATIENT AWAKE, ALERT, AND VERBALLY RESPONSIVE. NO APPARENT DISTRESS NOTED, DENIES PAIN DENIES SOB. PATIENT NOTED WITH LOW BP PER DECKHAND SHRIMP BOAT. MANUAL BP OF 90/52 PER DECKHAND SHRIMP BOAT, CALLED DEEPTHI CHOI AND INFORMED HER. PER DEEPTHI THIS BP IS ACCEPTABLE. ALL DUE MEDS GIVEN, ALL NEEDS MET, KEPT CLEAN AND DRY. SKIN ASSESSMENT DONE NOTED WITH PERINEAL REDNESS, AND A G TUBE AND J TUBE SITE. G TUBE DRAINING TO GRAVITY, 50 ML OUTPUT DURING SHIFT. G TUBE SITE WITH REDNESS NO DRAINAGE NOTED. J TUBE PATENT INFUSING WELL, ABLE TO FLUSH WITH NO DIFFICULTY. PICC LINE DRESSING CHANGE DONE NO S/S OF INFECTION NOTED. PATIENT WILL BE DISCHARGED WITH IV LINE FOR IV PAIN MEDICATION ADMINISTRATION. UNABLE TO REACH PATIENT'S NEXT OF KIN, PER PATIENT HER CAREGIVER AND ARAM ARE AWARE AND WILL BE WAITING FOR HER AT SNF.DISCHARGE INSTRUCTIONS REVIEWED WITH PATENT, SHE STATED UNDERSTANDING. MEDICATIONS REVIEWED WITH EDUCATION PROVIDED. REPORT GIVEN TO DEEPTHI CHOI FROM [facility]. EXIT CARE UTILIZED TO PROVIDE EDUCATIONAL MATERIAL.
== END 2017-03-10 14:45 | DRG 393 ==
LOC: ER 06:37 → MED 08:18
PROVIDERS: ADMIT Internal Medicine; ATTEND Internal Medicine
PROC: 0DH67UZ Insertion of Feeding Device into Stomach, Via Natural or Artificial Opening (ICD-10-PCS; 2017-03-05)
PROC: 0DHA3UZ Insertion of Feeding Device into Jejunum, Percutaneous Approach (ICD-10-PCS; 2017-03-05)
PROC: 02HV33Z Insertion of Infusion Device into Superior Vena Cava, Percutaneous Approach (ICD-10-PCS; principal; 2017-03-07)
DX: K94.13 Enterostomy malfunction (principal); A41.9 Sepsis, unspecified organism; E43 Unspecified severe protein-calorie malnutrition; K31.6 Fistula of stomach and duodenum; C25.9 Malignant neoplasm of pancreas, unspecified; R64 Cachexia; K94.23 Gastrostomy malfunction; L03.311 Cellulitis of abdominal wall; L02.211 Cutaneous abscess of abdominal wall; D64.9 Anemia, unspecified; E83.51 Hypocalcemia; K74.60 Unspecified cirrhosis of liver; R13.10 Dysphagia, unspecified; E87.6 Hypokalemia; K21.9 Gastro-esophageal reflux disease without esophagitis; Y92.129 Unspecified place in nursing home as the place of occurrence of the external cause; Y73.3 Surgical instruments, materials and gastroenterology and urology devices (including sutures) associated with adverse incidents; Z66 Do not resuscitate; Z88.0 Allergy status to penicillin; Z88.1 Allergy status to other antibiotic agents; Z91.011 Allergy to milk products; Y83.3 Surgical operation with formation of external stoma as the cause of abnormal reaction of the patient, or of later complication, without mention of misadventure at the time of the procedure; Z51.5 Encounter for palliative care; Z83.3 Family history of diabetes mellitus; G89.29 Other chronic pain; I73.9 Peripheral vascular disease, unspecified; R26.9 Unspecified abnormalities of gait and mobility; L53.9 Erythematous condition, unspecified
CPT/HCPCS: 36415; 74000-TC; 80048-TC; 80053-TC; 80202-TC; 82728-TC; 83540-TC; 83735-TC; 84100-TC; 85025-TC; 85730-TC; 87045-TC; 87070-TC; 87081-TC; 87186-TC; 93925-TC; 93930-TC; A4216; A4217; A4606; A6253; A6402; A6403; J1170; J1650; J2185; J2405; J3370; J3480; J3490; J7040; J7060; J8597; Q9963; Z7610